=== PATIENT | female | born 1950 | race Caucasian/White ===

== ENCOUNTER 2017-12-16 13:00 | Observation (INO) | payer OTHER ==
[~2017-12-16] VITALS: Ht 142.2 cm; Wt 49.0 kg
[~2017-12-16 13:00] MED LIST: ASPI81TA82 PO; DEXAMETHASONE SOD PHOS 4 MG/ML VIAL IV ONE; GLYCOPYRROLATE 1 MG/5 ML SYRINGE IV PUSH ONE; KETOROLAC TROMETHAMINE 30 MG/ML (IVP) VIAL IV PUSH ONE; LACTATED RINGER'S 1000 ML INJ 1,000 ML IV ONE; LIDOCAINE HCL 1% PF 5 ML SYRINGE OTHER ONE; NAPR220T95 PO; NEOSTIGMINE 5 MG/5 ML SYRINGE IV PUSH ONE; ONDANSETRON HCL 4 MG/2 ML VIAL IV ONE; PHENYLEPH/NS 1000 MCG/10 ML SYR IV ONE; PROPOFOL 200 MG/20 ML AMP IV ONE; ROCURONIUM INJ 50 MG/5 ML SYRINGE IV PUSH ONE; VITA-13 PO
[2017-12-16 13:50] VITALS: BP 198/75; PULSE 80; RESP 18; TEMP 99.2; O2SAT 99
[2017-12-16] MEDS ORDERED: ALEV220T14 PO (14:26)
[2017-12-16] MEDS ORDERED: MELO15TA20 PO (14:26)
[2017-12-16 14:27] VITALS: BP 180/84; PULSE 76; RESP 17; TEMP 98.9; O2SAT 98
[2017-12-16 14:28] VITALS: BP 180/84; PULSE 76; RESP 17; TEMP 98.9; O2SAT 98
[2017-12-16] MEDS ORDERED: SODIUM CHLORIDE 0.9% FLUSH 10 ML FLUSH IV FLUSH PRN ×2 (14:30→20:00)
--- NOTE | 2017-12-16 14:38 | PD ---
HPI Chief Complaint: Abdominal Pain Time Seen by Provider: 14:25 Travel History International Travel<30 days: No Contact w/Intl Traveler<30days: No Traveled to known affect area: No History of Present Illness HPI Patient states that she is coming in complaining of a 1 day history of lower quadrant pain. Described as sharp, nonradiating, intermittent, right lower quadrant area, 9 out of 10, not improved or resolved with a bowel movement. Patient denies any alleviating or aggravating factors. Patient denies any associated factors such as fever, nausea, vomiting, diarrhea, rash, cough, runny nose, sore throat, flank pain, chest pain. PCP is Dr. Ng Allergy to ketoprofen Past medical history significant for hernia repair, , denies any other past medical history and states that she is not on any medications currently. And is also not supposed to be on any medications. PFSH Past Medical History Cancer: No Cardiovascular Problems: No Diabetes: No Endocrine: No Genitourinary: No Hepatitis: No Hiatal Hernia: No Immune Disorder: No Musculoskeletal: Yes (TENDONITIS R ARM) Neurologic: No Psychiatric: No Reproductive: No Respiratory: No Thyroid Disease: No Tetanus Vaccination: Unknown Influenza Vaccination: No Menopausal: Yes Past Surgical History Abdominal Surgery: Yes (HERNIA REPAIR) AICD: No Section: Yes (X1) Joint Replacement: No Pacemaker: No Social History Alcohol Use: No Tobacco Use: No Substance Use: No Allergies-Medications (Allergen,Severity, Reaction): Coded Allergies: ketoprofen (Unverified Adverse Reaction, Unknown, NAUSEA/VOMITING, 12/16/17 ) Reported Meds & Prescriptions Reported Meds & Active Scripts Active Reported Meloxicam 15 Mg Tab 15 Mg PO DAILY Aleve Arthritis (Naproxen Sodium) 220 Mg Tab 220 Mg PO BID Review of Systems General / Constitutional: No: Fever Eyes: No: Visual changes HENT: No: Headaches Cardiovascular: No: Chest Pain or Discomfort Respiratory: No: Shortness of Breath Gastrointestinal: Positive: Abdominal Pain Genitourinary: No: Dysuria Musculoskeletal: No: Pain Skin: No Rash Neurologic: No: Weakness Psychiatric: No: Depression Endocrine: No: Polydipsia Hematologic/Lymphatic: No: Easy Bruising Physical Exam Narrative GENERAL: SKIN: Warm and dry. HEAD: Atraumatic. Normocephalic. EYES: Pupils equal and round. No scleral icterus. No injection or drainage. ENT: No nasal bleeding or discharge. Mucous membranes pink and moist. NECK: Trachea midline. No JVD. CARDIOVASCULAR: Regular rate and rhythm. RESPIRATORY: No accessory muscle use. Clear to auscultation. Breath sounds equal bilaterally. GASTROINTESTINAL: Abdomen soft, nondistended. TTPERCUSSION TO SUPRAPUBIC AND RLQ TTP, CLOSER TO RT ADNEXAL, NEG ROVSING'S/MCBURNEYS/PSOAS SIGNS MUSCULOSKELETAL: Extremities without clubbing, cyanosis, or edema. No obvious deformities. NEUROLOGICAL: Awake and alert. No obvious cranial nerve deficits. Motor grossly within normal limits. Five out of 5 muscle strength in the arms and legs. Normal speech. PSYCHIATRIC: Appropriate mood and affect; insight and judgment normal. Data Data Last Documented VS Vital Signs Date Time Temp Pulse Resp B/P (MAP) Pulse Ox O2 Delivery O2 Flow Rate FiO2 12/16/17 16:29 81 18 193/87 (122) 97 Room Air 12/16/17 14:28 98.9 Orders Orders Complete Blood Count With Diff (12/16/17 14:26) Comprehensive Metabolic Panel (12/16/17 14:26) Lipase (12/16/17 14:26) Urinalysis - C+S If Indicated (12/16/17 14:26) Ct Abd/Pel W/O Iv Contrast (12/16/17 14:26) Iv Access Insert/Monitor (12/16/17 14:26) Ecg Monitoring (12/16/17 14:26) Oximetry (12/16/17 14:26) NPO (12/16/17 14:26) Sodium Chloride 0.9% Flush (Ns Flush) (12/16/17 14:30) Levofloxacin 500 Mg Premix Inj (Levaquin (12/16/17 16:15) Admit Order (Ed Use Only) (12/16/17 16:32) Labs Laboratory Tests Test 12/16/17 14:35 12/16/17 14:39 White Blood Count 11.2 TH/MM3 Red Blood Count 4.58 MIL/MM3 Hemoglobin 14.2 GM/DL Hematocrit 42.2 % Mean Corpuscular Volume 92.1 FL Mean Corpuscular Hemoglobin 31.0 PG Mean Corpuscular Hemoglobin Concent 33.7 % Red Cell Distribution Width 13.6 % Platelet Count 218 TH/MM3 Mean Platelet Volume 9.3 FL Neutrophils (%) (Auto) 87.8 % Lymphocytes (%) (Auto) 8.1 % Monocytes (%) (Auto) 3.8 % Eosinophils (%) (Auto) 0.1 % Basophils (%) (Auto) 0.2 % Neutrophils # (Auto) 9.8 TH/MM3 Lymphocytes # (Auto) 0.9 TH/MM3 Monocytes # (Auto) 0.4 TH/MM3 Eosinophils # (Auto) 0.0 TH/MM3 Basophils # (Auto) 0.0 TH/MM3 CBC Comment DIFF FINAL Differential Comment Blood Urea Nitrogen 14 MG/DL Creatinine 0.73 MG/DL Random Glucose 110 MG/DL Total Protein 7.5 GM/DL Albumin 3.5 GM/DL Calcium Level 8.8 MG/DL Alkaline Phosphatase 65 U/L Aspartate Amino Transf (AST/SGOT) 30 U/L Alanine Aminotransferase (ALT/SGPT) 25 U/L Total Bilirubin 0.4 MG/DL Sodium Level 137 MEQ/L Potassium Level 3.9 MEQ/L Chloride Level 102 MEQ/L Carbon Dioxide Level 26.8 MEQ/L Anion Gap 8 MEQ/L Estimat Glomerular Filtration Rate 80 ML/MIN Lipase 116 U/L Urine Color YELLOW Urine Turbidity CLEAR Urine pH 5.5 Urine Specific [place] 1.024 Urine Protein NEG mg/dL Urine Glucose (UA) NEG mg/dL Urine Ketones 10 mg/dL Urine Occult Blood NEG Urine Nitrite NEG Urine Bilirubin NEG Urine Urobilinogen LESS THAN 2.0 MG/DL Urine Leukocyte Esterase NEG Urine RBC 1 /hpf Urine WBC 1 /hpf Urine Squamous Epithelial Cells <1 /hpf Urine Mucus FEW /lpf Microscopic Urinalysis Comment CULT NOT INDICATED MDM Medical Decision Making Medical Screen Exam Complete: Yes Emergency Medical Condition: Yes Medical Record Reviewed: Yes Differential Diagnosis Appendicitis versus colitis versus cystitis versus pyelonephritis versus ureteral stones versus diverticulitis Narrative Course CBC shows mild leukocytosis with 88% neutrophilia, no anemia, normal platelet count UA is negative for UTI Elect lites are within normal limits, Normal kidney liver and pancreatic functions CT read by radiologist shows evidence of acute appendicitis without rupture or abscess General surgeon called to dr yin initially, however he advised me to contact [facility] surgery also d/w dr masters, who upon evaluation of chart believes that [facility] surgeons should be able to admit primarily without medicine involvment patient given Levaquin IV piggyback, patient continued to decline pain medication presently. Diagnosis Primary Impression: Acute appendicitis Admitting Information Admitting Physician Requests: Admit Clif Rodriguez MD December 16, 2017 14:38
[2017-12-16 14:52] LABS: AUTOMATED NEUTROPHIL # 9.8 TH/MM3 (1.8-7.7); BASOPHIL % 0.2 % (0.0-2.0); EOSINOPHIL % 0.1 % (0.0-4.0); HEMATOCRIT 42.2 % (35.0-46.0); HEMOGLOBIN 14.2 GM/DL (11.6-15.3); LYMPH % 8.1 % (9.0-44.0); LYMPHOCYTE # 0.9 TH/MM3 (1.0-4.8); MEAN CELL VOLUME 92.1 FL (80.0-100.0); MEAN CORPUSCULAR HGB CONC 33.7 % (32.0-36.0); MEAN PLATELET VOLUME 9.3 FL (7.0-11.0); MONO % 3.8 % (0.0-8.0); MONOCYTE # 0.4 TH/MM3 (0-0.9); NEUT % 87.8 % (16.0-70.0); PLATELET COUNT 218 TH/MM3 (150-450); RED BLOOD COUNT 4.58 MIL/MM3 (4.00-5.30); RED CELL DISTRIBUTION WIDTH 13.6 % (11.6-17.2); WHITE BLOOD COUNT 11.2 TH/MM3 (4.0-11.0)
[2017-12-16 14:58] LABS: BILIRUBIN, URINE NEG (NEG); BLOOD, URINE NEG (NEG); GLUCOSE,URINE NEG (NEG); KETONE, URINE 10 mg/dL (NEG); MUCUS URINE FEW /lpf (OCC); NITRITE,URINE NEG (NEG); PH, URINE 5.5 (5.0-8.5); SQUAMOUS EPITHELIAL CELL URINE <1 /hpf (0-5); URINE COLOR YELLOW (YELLW/STRAW); URINE LEUKOCYTE ESTERASE NEG (NEG)
[2017-12-16 15:27] LABS: ALKALINE PHOSPHATASE 65 U/L (45-117); TOTAL BILIRUBIN ADULT 0.4 MG/DL (0.2-1.0); TOTAL PROTEIN 7.5 GM/DL (6.4-8.2)
[2017-12-16 15:30] LABS: ALBUMIN 3.5 GM/DL (3.4-5.0); ALT (GPT) 25 U/L (10-53); AST (GOT) 30 U/L (15-37); BICARBONATE 26.8 MEQ/L (21.0-32.0); BLOOD UREA NITROGEN 14 MG/DL (7-18); CALCIUM 8.8 MG/DL (8.5-10.1); CHLORIDE 102 MEQ/L (98-107); CREATININE 0.73 MG/DL (0.50-1.00); GLOMERULAR FILTRATION RATE 80 ML/MIN (>89); GLUCOSE,RANDOM 110 MG/DL (74-106); SODIUM (NA) 137 MEQ/L (136-145)
--- NOTE | 2017-12-16 15:57 | RADRPT ---
EXAM DATE/TIME: 12/16/2017 15:02 [place] COMPARISON: No previous studies available for comparison. INDICATIONS : Right lower quadrant pain. ORAL CONTRAST: Prescribed oral contrast ingested. RADIATION DOSE: 6.57 CTDIvol (mGy) MEDICAL HISTORY : None SURGICAL HISTORY : section. Hernea repair ENCOUNTER: Initial ACUITY: 1 day PAIN SCALE: 8/10 LOCATION: Right lower quadrant Abdomen TECHNIQUE: Volumetric scanning of the abdomen and pelvis was performed. Using automated exposure control and ad justment of the mA and/or kV according to patient size, radiation dose was kept as low as reasonably achievable to obtain optimal diagnostic quality images. DICOM format image data is available electro nically for review and comparison. FINDINGS: LOWER LUNGS: The visualized lower lungs are clear. LIVER: Small focal calcification in the posterior right lobe of the liver. Liver is otherwise grossly unrema rkable. No calcified gallstones. SPLEEN: Normal size without lesion. PANCREAS: Within normal limits. KIDNEYS: Normal in size and shape. There is no mass, stone, or hydronephrosis. ADRENAL GLANDS: Within normal limits. VASCULAR: There is no aortic aneurysm. BOWEL/MESENTERY: Abnormal. The appendix is enlarged with periappendiceal inflammatory stranding. No free air or focal drainable fluid collections. Remainder of the bowel is unremarkable. ABDOMINAL WALL: Very small fat containing periumbilical anterior abdominal wall hernia. RETROPERITONEUM: There is no lymphadenopathy. BLADDER: No wall thickening or mass. REPRODUCTIVE: Within normal limits. INGUINAL: There is no lymphadenopathy or hernia. MUSCULOSKELETAL: Within normal limits for patient age. CONCLUSION: 1. Findings consistent with acute appendicitis without rupture or abscess. Ernesto Johnston MD on December 16, 2017 at 15:26 Board Certified Radiologist. This report was verified electronically.
[2017-12-16] MEDS ORDERED: LEVOFLOXACIN 500 MG PREMIX INJ 100 ML IV ONE (16:15)
[2017-12-16 16:29] VITALS: BP 193/87; PULSE 81; RESP 18; O2SAT 97
[2017-12-16] MEDS ORDERED: MORPHINE SULFATE 4 MG/ML INJ IV ONE (18:20)
[2017-12-16 18:29] VITALS: BP 141/68; PULSE 90; RESP 16; O2SAT 98
[2017-12-16] MEDS ORDERED: BUPIVACAINE/EPINEPHRINE 0.25% 50 ML VIAL ONE (18:43)
[2017-12-16 20:00] VITALS: BP 139/67; PULSE 79; RESP 16; TEMP 98.5; O2SAT 97
[2017-12-16] MEDS ORDERED: MORPHINE SULFATE 4 MG/ML INJ IV PUSH PRN (20:00)
[2017-12-16] MEDS ORDERED: Post-op Orders (for Pharmacy) XX ONE (20:00)
[2017-12-16] MEDS ORDERED: MAGNESIUM HYDROXIDE SUSP 30 ML CUP PO PRN (20:00)
[2017-12-16] MEDS ORDERED: ACETAMINOPHEN/HYDROcodone 325 MG/5 MG TAB PO PRN ×2 (20:00)
[2017-12-16] MEDS ORDERED: DO NOT ADM ANY ANTICOAGULANT DRUGS PRN (20:04)
[2017-12-16] MEDS ORDERED: ONDANSETRON ODT 4 MG TAB PO PRN (20:15)
[2017-12-16] MEDS: SODIUM CHLORIDE 0.9% FLUSH 10 ML FLUSH IV FLUSH SCH (20:30)
[2017-12-16] MEDS: SODIUM CHLOR 0.9% 1000 ML INJ 1,000 ML IV SCH (20:30)
--- NOTE | 2017-12-16 20:40 | MH ---
cc: Xiang Kim MD DATE OF ADMISSION: 12/16/2017 DATE OF : 1950 DATE OF ADMISSION: 12/16/2017. REASON FOR ADMISSION: Appendicitis. HISTORY OF PRESENT ILLNESS: This is a 67-year-old female who presented to the emergency room with a complaint of abdominal pain. The patient stated the pain started in the early a.m. and persisted throughout the day as it persisted, she presented to the emergency room for evaluation. On evaluation, she was found to have appendicitis on CAT scan. The patient states the pain started in the right lower quadrant and persisted in this region. No nausea, no vomiting, no change in bowel habits. PAST MEDICAL HISTORY: Negative. PAST SURGICAL HISTORY: Laparoscopic left inguinal hernia repair. MEDICATIONS: She is on no prescribed medications at home. ALLERGIES: KETOPROFEN. SOCIAL HISTORY: She does not smoke. FAMILY HISTORY: Noncontributory. REVIEW OF SYSTEMS: Significant for the above. All Other 10 point review is negative. PHYSICAL EXAMINATION: GENERAL: The patient is lying in a stretcher in no acute distress. HEENT: Pupils are equal and reactive. NECK: Trachea is midline. LUNGS: Respirations clear. HEART: Regular. GASTROINTESTINAL: Soft. Positive right lower quadrant tenderness. MUSCULOSKELETAL: No deformities. NEUROLOGIC: Nonfocal. LABORATORY DATA: The patient's white blood cell count was 11.2, neutrophils of 88. IMAGING STUDIES: CAT scan revealed dilated appendix. ASSESSMENT: This is a patient with acute appendicitis. PLAN: Laparoscopic appendectomy. The risks and benefits were explained to include, but not be exclusive to infection, bleeding, bowel injury, bladder injury, ureter injury. Technical aspects explained as well as socorro and postoperative course. The patient verbalized understanding. Consent was obtained. We will proceed to the operating room. MD IVON Mancilla/SEVERINO , 07:53 PM , 08:39 PM
--- NOTE | 2017-12-16 21:09 | MP ---
cc: Xiang Kim MD DATE OF OPERATION: 12/16/2017 PREOPERATIVE DIAGNOSIS: Acute appendicitis. POSTOPERATIVE DIAGNOSIS: Acute appendicitis. PROCEDURE PERFORMED: Laparoscopic appendectomy. SURGEON: Xiang Kim MD ANESTHESIA: General endotracheal anesthesia. ESTIMATED BLOOD LOSS: Scant. FINDINGS: Dilated appendix. SPECIMEN: Appendix. COMPLICATIONS: None. DESCRIPTION OF PROCEDURE: The patient was brought to the operating room, placed on the operating table in supine position. Bilateral sequential inflation device placed on lower extremities. General anesthesia instituted. The abdomen was prepped and draped sterilely. The infraumbilical region anesthetized with 0.25 Marcaine with epinephrine. A skin incision was made. A 12 mm Optiview port placed under direct vision and pneumoperitoneum created. Under direct vision, two 5 mm ports were placed in the midline. The patient was then placed in Trendelenburg position, right side up. The appendix was visualized. It was brought into view. The mesoappendix was using the Harmonic scalpel. The appendix was mobilized at its base using the endovascular stapler. The appendix was then amputated at its base. The staple line was inspected. There was some oozing from the staple line. This was controlled with Hemoclips. The appendix was retrieved from the peritoneal cavity in an Endopouch through the 12 mm port site. The pelvis was then irrigated with saline. CO2 was released. All ports were removed. The fascia of the 12 mm port site approximated with 0 Vicryl. All skin incisions were closed with 4-0 Monocryl. The abdominal wall was cleaned and sterile dressing placed. The patient is awakened and taken to the Recovery Room. MD IVON Mancilla/JOSH , 07:49 PM , 09:07 PM
[2017-12-17] VITALS: BP 118/57; PULSE 76; RESP 16; TEMP 97.8; O2SAT 97
[2017-12-17 04:00] VITALS: BP 117/56; PULSE 76; RESP 16; TEMP 98.3; O2SAT 96
[2017-12-17] MEDS: SODIUM CHLOR 0.9% 1000 ML INJ 1,000 ML IV SCH ×2 (04:54→15:20)
[2017-12-17 07:43] VITALS: BP 129/60; PULSE 66; RESP 16; TEMP 98.1; O2SAT 96
[2017-12-17] MEDS: SODIUM CHLORIDE 0.9% FLUSH 10 ML FLUSH IV FLUSH SCH (07:48)
--- NOTE | 2017-12-17 11:11 | HHI.PR ---
Subjective Subjective Notes pain improved tolerating clears Objective Vitals/I&O Vital Signs Date Time Temp Pulse Resp B/P (MAP) Pulse Ox O2 Delivery O2 Flow Rate FiO2 12/17/17 07:43 98.1 66 16 129/60 (83) 96 12/16/17 21:00 Room Air Labs Laboratory Tests Test 12/16/17 14:35 12/16/17 14:39 White Blood Count 11.2 Red Blood Count 4.58 Hemoglobin 14.2 Hematocrit 42.2 Mean Corpuscular Volume 92.1 Mean Corpuscular Hemoglobin 31.0 Mean Corpuscular Hemoglobin Concent 33.7 Red Cell Distribution Width 13.6 Platelet Count 218 Mean Platelet Volume 9.3 Neutrophils (%) (Auto) 87.8 Lymphocytes (%) (Auto) 8.1 Monocytes (%) (Auto) 3.8 Eosinophils (%) (Auto) 0.1 Basophils (%) (Auto) 0.2 Neutrophils # (Auto) 9.8 Lymphocytes # (Auto) 0.9 Monocytes # (Auto) 0.4 Eosinophils # (Auto) 0.0 Basophils # (Auto) 0.0 CBC Comment DIFF FINAL Differential Comment Blood Urea Nitrogen 14 Creatinine 0.73 Random Glucose 110 Total Protein 7.5 Albumin 3.5 Calcium Level 8.8 Alkaline Phosphatase 65 Aspartate Amino Transf (AST/SGOT) 30 Alanine Aminotransferase (ALT/SGPT) 25 Total Bilirubin 0.4 Sodium Level 137 Potassium Level 3.9 Chloride Level 102 Carbon Dioxide Level 26.8 Anion Gap 8 Estimat Glomerular Filtration Rate 80 Lipase 116 Urine Color YELLOW Urine Turbidity CLEAR Urine pH 5.5 Urine Specific [place] 1.024 Urine Protein NEG Urine Glucose (UA) NEG Urine Ketones 10 Urine Occult Blood NEG Urine Nitrite NEG Urine Bilirubin NEG Urine Urobilinogen LESS THAN 2.0 Urine Leukocyte Esterase NEG Urine RBC 1 Urine WBC 1 Urine Squamous Epithelial Cells <1 Urine Mucus FEW Microscopic Urinalysis Comment CULT NOT INDICATED Radiology Last Impressions Abdomen/Pelvis CT 12/16/17 1426 Signed Impressions: Service Date/Time: Saturday, December 16, 2017 15:02 - CONCLUSION: 1. Findings consistent with acute appendicitis without rupture or abscess. Ernesto Johnston MD Cardiovascular: Regular Lungs: Clear Abdomen: Post-op tenderness Extremities: Perfused Wound Wound : Wound Location: Abdomen Appearance: Clean & Dry A/P Assessment and Plan 67yo F POD# 1 laparoscopic appendectomy -Increase to regular diet -Continue frequent ambulation The exam, history, and the medical decision-making described in the above note were completed with the assistance of the mid-level provider. I reviewed and agree with the findings presented. I attest that I had a [id number] encounter with the patient on the same day, and personally performed and documented my assessment and findings in the medical record. Discharge Planning Most likely D/C home today Claudette Pettit December 17, 2017 11:11 Xiang Kim MD December 20, 2017 17:03
[2017-12-17] MEDS ORDERED: SIMETHICONE 125 MG CHEWABLE TAB PO ONE (11:45)
[2017-12-17 12:00] VITALS: BP 139/67; PULSE 65; RESP 16; TEMP 98.3; O2SAT 98
[2017-12-17] MEDS ORDERED: NORC5TAB PO (12:47)
[2017-12-17 16:00] VITALS: BP 151/67; PULSE 71; RESP 18; TEMP 98.3; O2SAT 96
== END 2017-12-17 17:56 | disposition home or self-care (01) ==
LOC: NEPD 13:00 → UNDOADMIN 16:33 → NEDA 16:33 → HPAC 19:56 → INTOOBSV 19:56 → N07A 21:23
PROVIDERS: ADMIT Surgery; ATTEND Surgery
DX: K35.80 Unspecified acute appendicitis (principal)
CPT/HCPCS: 00840; 44970; 74176; 80053; 81001; 83690; 85025; 88304; 94150; 96361; 96374; 99285; G0378; J1100; J1885; J1956; J2270; J2370; J2405; J2710; J3010; J7030; J7120